=== PATIENT | male | born 1990 | race Caucasian/White ===

== ENCOUNTER 2021-02-02 00:41 | Inpatient (IN) ==
[2021-02-02] MEDS ORDERED: Ibuprofen 400 MG TABLET PO PRN (02:55)
[2021-02-02] MEDS ORDERED: haloperidoL 5 MG TABLET PO PRN (02:55)
[2021-02-02] MEDS ORDERED: *HR* LORazepam 1 MG TABLET PO PRN (02:55)
[2021-02-02] MEDS ORDERED: *HR* LORazepam 2 MG/ML VIAL IM PRN (02:55)
[2021-02-02] MEDS ORDERED: Haloperidol Lactate 5 MG/ML VIAL IM PRN (02:55)
[2021-02-02] MEDS ORDERED: MOM Conc 10 ML UD.LIQ PO PRN (02:55)
[2021-02-02] MEDS ORDERED: Mag Hydrox/Al Hydrox/Simeth 30 ML UDC PO PRN (02:55)
[2021-02-02] MEDS ORDERED: hydrOXYzine pamoate 25 MG CAPSULE PO PRN (02:55)
[2021-02-02] MEDS ORDERED: QUEtiapine Fumarate 25 MG TABLET PO PRN (02:55)
[2021-02-02] MEDS ORDERED: ARIPiprazole 10 MG TABLET PO SCH (12:15)
[2021-02-02] MEDS: ARIPiprazole 10 MG TABLET PO SCH (20:38)
[2021-02-02] MEDS ORDERED: Mirtazapine 15 MG TABLET PO SCH (21:00)
[2021-02-03] MEDS ORDERED: Mirtazapine 15 MG TABLET PO SCH (21:00)
[2021-02-03] MEDS ORDERED: ARIPiprazole 5 MG TABLET PO SCH (21:00)
[2021-02-03] MEDS: ARIPiprazole 10 MG TABLET PO SCH (21:36)
[2021-02-04 09:07] VITALS: BP 111/74
[2021-02-04] MEDS ORDERED: Ammonium Lactate 30 APPL/225 GM BOTTLE TP SCH (21:00)
== END 2021-02-04 15:30 | disposition home or self-care (01) | DRG 750 ==
LOC: EMEROOARM 00:41 → 1ANU 02:54
PROVIDERS: ADMIT Psychiatry & Neurology Psychiatry; ATTEND Psychiatry & Neurology Psychiatry

== ENCOUNTER 2022-04-28 09:51 | Inpatient (IN) ==
[2022-04-28] MEDS ORDERED: *HR* LORazepam 1 MG TABLET PO PRN (12:48)
[2022-04-28] MEDS ORDERED: Ibuprofen 400 MG TABLET PO PRN (12:48)
[2022-04-28] MEDS ORDERED: *HR* LORazepam 2 MG/ML VIAL IM PRN (12:48)
[2022-04-28] MEDS ORDERED: haloperidoL 5 MG TABLET PO PRN (12:48)
[2022-04-28] MEDS ORDERED: Mag Hydrox/Al Hydrox/Simeth 30 ML UDC PO PRN (12:48)
[2022-04-28] MEDS ORDERED: Haloperidol Lactate 5 MG/ML VIAL IM PRN (12:48)
[2022-04-28] MEDS ORDERED: MOM Conc 10 ML UD.LIQ PO PRN (12:48)
[2022-04-28] MEDS ORDERED: Nicotine 2 MG GUM BC PRN (12:48)
[2022-04-28] MEDS ORDERED: QUEtiapine Fumarate 25 MG TABLET PO PRN (12:48)
[2022-04-28] MEDS ORDERED: Baclofen 10 MG TABLET PO PRN (12:50)
[2022-04-28] MEDS ORDERED: cloNIDine HCL 0.1 MG TABLET PO PRN (12:50)
[2022-04-28 13:48] LABS: Influenza A PCR Negative (Negative); Influenza B PCR Negative (Negative); Resp. Syncytial Virus PCR Negative (Negative)
[2022-04-28 16:22] LABS: SARS-CoV-2 by PCR (In House) Negative (Negative)
[2022-04-28 19:52] LABS: Estimated Average Glucose 97 mg/dl
[2022-04-28] MEDS ORDERED: ARIPiprazole 5 MG TABLET PO SCH (21:00)
[2022-04-28] MEDS: hydrOXYzine pamoate 25 MG CAPSULE PO PRN (21:41)
[2022-04-28] MEDS: traZODone 50 MG TABLET PO PRN (21:42)
[2022-04-29] MEDS: traZODone 50 MG TABLET PO PRN (21:16)
[2022-04-30] MEDS ORDERED: Paliperidone Palmitate 234 MG/1.5 ML SYRINGE IM ONE (12:00)
[2022-04-30] MEDS: traZODone 50 MG TABLET PO PRN (21:11)
[2022-05-01] MEDS: traZODone 50 MG TABLET PO PRN (20:52)
[2022-05-02] MEDS: traZODone 50 MG TABLET PO PRN (21:44)
[2022-05-03] MEDS: hydrOXYzine pamoate 25 MG CAPSULE PO PRN (14:40)
[2022-05-03] MEDS: traZODone 50 MG TABLET PO PRN (20:56)
[2022-05-04 08:57] VITALS: BP 125/74; PULSE 88; TEMP 97; O2SAT 100
[2022-05-04] MEDS ORDERED: Paliperidone Palmitate 156 MG/ML SYRINGE IM SCH (10:30)
== END 2022-05-04 14:15 | disposition home or self-care (01) | DRG 750 ==
LOC: EMEROOARM 09:51 → SUATTDRO 16:38 → 1ANU 16:38
PROVIDERS: ADMIT Psychiatry & Neurology Psychiatry; ATTEND Psychiatry & Neurology Forensic Psychiatry